=== PATIENT | male | born 1970 | race Two or more races ===

== ENCOUNTER 2021-03-30 13:22 | Emergency (ER) | payer OTHER ==
[~2021-03-30] VITALS: Ht 188 cm; Wt 113.4 kg
[2021-03-30 14:33] VITALS: BP 160/97
== END 2021-03-30 14:37 | disposition home or self-care (01) ==
LOC: EDBD 13:22 → ER 13:24 → EEVIPCON 13:24 → ER 14:37
DX: I10 Essential (primary) hypertension (principal); G89.29 Other chronic pain; Z86.11 Personal history of tuberculosis
CPT/HCPCS: 71250